=== PATIENT | female | born 1985 | race African-American/Black ===

== ENCOUNTER 2017-06-10 13:53 | Emergency (ER) | payer MEDICAID, OTHER ==
[~2017-06-10] VITALS: Ht 160 cm; Wt 64.0 kg
[2017-06-10 13:53] VITALS: BP 121/70
[2017-06-10] MEDS ORDERED: IBUPROFEN 600 MG TABLET PO ONE ×2 (14:24→14:30)
--- NOTE | 2017-06-10 14:26 | NUR ---
MOTRIN PO GIVEN BY MISBAH MONACO.
== END 2017-06-10 14:38 | disposition home or self-care (01) ==
LOC: ER 13:54
DX: S16.1XXA Strain of muscle, fascia and tendon at neck level, initial encounter (principal); S30.0XXA Contusion of lower back and pelvis, initial encounter; E05.00 Thyrotoxicosis with diffuse goiter without thyrotoxic crisis or storm; V49.50XA Passenger injured in collision with unspecified motor vehicles in traffic accident, initial encounter; Y93.89 Activity, other specified; Y92.89 Other specified places as the place of occurrence of the external cause; Y99.8 Other external cause status
CPT/HCPCS: A4606; Z7610

== ENCOUNTER → 2017-06-10 | Emergency (ER) | payer MEDICAID | END | disposition left against medical advice (07) | LOC: ER 15:23 | DX: Z53.21 Procedure and treatment not carried out due to patient leaving prior to being seen by health care provider (principal) ==

== ENCOUNTER 2018-07-09 15:59 | Emergency (ER) | payer MEDICAID ==
[~2018-07-09] VITALS: Ht 165.1 cm; Wt 54.9 kg
--- NOTE | 2018-07-09 16:26 | NUR ---
PT BROUGHT IN FROM HOME WITH C/C COUGH AND CONGESTION GENERALIZED WEAKNESS SINCE THURSDAY PT EVALUATED BY MD WILL CONTINUE TO MONITOR
[2018-07-09] MEDS ORDERED: IPRATROPIUM NEB FS 0.5 MG/2.5 ML AMPUL.NEB NEB ONE (17:30)
[2018-07-09] MEDS ORDERED: ALBUTEROL FS 2.5 MG/3 ML VIAL.NEB NEB ONE (17:30)
[2018-07-09] MEDS ORDERED: ACETAMINOPHEN ES 500 MG TABLET PO ONE (17:30)
[2018-07-09] MEDS ORDERED: ACETAMINOPHEN ES 500 MG TABLET ONE (17:46)
[2018-07-09] MEDS ORDERED: IPRATROPIUM NEB FS 0.5 MG/2.5 ML AMPUL.NEB ONE (17:56)
[2018-07-09] MEDS ORDERED: ALBUTEROL FS 2.5 MG/3 ML VIAL.NEB ONE (17:56)
[2018-07-09 19:18] VITALS: BP 124/66
== END 2018-07-09 19:18 | disposition home or self-care (01) ==
LOC: ER 16:01
DX: R05 Cough (principal); R53.1 Weakness; R94.31 Abnormal electrocardiogram [ECG] [EKG]; Z60.2 Problems related to living alone
CPT/HCPCS: 71045; 93005; 94640; 99283; A4606